=== PATIENT | female | born 1985 | race Caucasian/White ===

== ENCOUNTER 2016-11-11 23:59 | Emergency (ER) | payer OTHER ==
[2016-11-12 00:30] VITALS: TEMP 98.8; BMI 56.3
[2016-11-12] MEDS ORDERED: MORPHINE 4 MG/ML INJECTION IV ONE (00:50)
[2016-11-12] MEDS ORDERED: NS 1,000 ML IV ONE (00:50)
[2016-11-12] MEDS ORDERED: ONDANSETRON HCL 4 MG/2 ML VIAL IV ONE (00:50)
--- NOTE | 2016-11-12 00:54 | EDPRACDOC ---
- General Information Chief Complaint: Dyspnea/Resp distress Stated Complaint: SHORTNESS OF BREATH Time Seen by Provider: 11/12/16 00:35 Information Source: Patient Mode Of Arrival: Car Home Medications: Home Medications Ibuprofen Tablet [Motrin] 800 mg PO QID PRN 11/12/16 Sitagliptin Phosphate [Januvia] 100 mg PO DAILY 11/12/16 Allergies/Adverse Reactions: Allergies Allergy/AdvReac Type Severity Reaction Status Date / Time cefaclor [From Ceclor] Allergy Intermediate Rash-Genera Verified 11/12/16 00:32 lized codeine Allergy Intermediate Nausea/Vomi Verified 11/12/16 00:32 ting - History of Present Illness Onset: TONIGHT HPI: PT STATES SHE BEGAN HAVING UPPER THIGH PAIN EARLIER AND BECAME SHOB. PT DENIES FEVER, CHILLS, NAUSEA OR VOMITING. STATES SHE IS NOT A SMOKER AND DOES NOT TAKE CONTROL, HOWEVER SHE STATES SHE IS NOT VERY AMBULATORY Shortness of Breath: None Relevant History: Reports: None Cough: Reports: Non-productive Rhinorrhea: Reports: Clear Ear Symptoms: Reports: None SOB Worsens with: Reports: Exertion, Anxiety, Lying Flat, Position SOB Improves with: Reports: Sitting up, Rest, Position Recently treated infections:: Denies: Otitis media, Pneumonia, URI ED Past Medical History - History Reviewed Yes Nurses notes reviewed and agree except as marked - Patient Medical History Psychological History: Reports: Depression, Anxiety Systemic History: Reports: Diabetes. Denies: Cancer, Anemia, Lupus Additional Past Medical History: PCOS Surgical History: Reports: Other (BTL) - Family Medical History Reports: Hypertension, Diabetes, Cancer, Stroke, Cardiac Disorders - Social Medical History Smoking Status: Never smoker EDM Review of Systems - Review of Systems ROS Negative Except as Marked: Yes All systems reviewed and were negative except as marked - Physical Exam Constitutional: Alert Oriented to: Time, Person, Place Last recorded Vital Signs: Last Vital Signs Temp 98.8 F 11/12/16 00:23 Pulse 104 11/12/16 00:23 Resp 20 11/12/16 00:23 BP 150/67 11/12/16 00:23 Pulse Ox 98 11/12/16 00:23 Oxygen Pulse Oxygen Saturation 98 O2 Device Room Air Oxygen Flow Rate Fraction of Inspired Oxygen ( FIO2) - HEENT Head: Normal ( normocephalic) Eye Exam: Normal (PERRL, EOMI, Sclera white) Oropharynx: Normal (Pharynx:Moist without exudate,Gums-no swelling) Nose: No Symptoms Reported (septum midline) Neck: Normal (FROM, trachea at midline) - Respiratory/Cardiovascular Respiratory: Normal - CTA (BBS clear to auscultation without adventitious sounds ) Cardiovascular: Tachycardia - GI Auscultation: Normal (NABS) Palpation: Normal (Soft,No rebound or guarding, non distended) Tenderness: Non tender Dalton's Sign: Negative Rectal Exam: Deferred - Musculoskeletal Back: Normal (Non-Tender) Extremities: Normal (Normal tone, Pulses 2+ No cyanosis or edema, FROM) - Integumentary Skin: Normal, Warm, Dry Lymphatics: Normal (no adenopathy) - Neurologic Memory Impaired: Normal Motor Function: Normal (Normal tone, Pulses 2+ No cyanosis or edema, FROM) Cranial Nerve: Normal (CN II-X11 intact sensation, strength 5/5) Cerebellar: Normal Mood Description: Normal Perception: Normal ED SOB MDM - Differential Diagnosis Differential Diagnosis: Other - Results Result Diagrams: 11/12/16 01:00 11/12/16 01:00 - EKG EKG #1 EKG Time: 01:12 -: Yes EKG interpreted by me Rate: bpm: 91 [place]: Normal Rhythm: NSR Block: None Hypertrophy: None ST: Normal Decision Time to Discharge: 02:45 - Departure Disposition: Home Condition: Stable Final Diagnosis: Dyspnea Qualifiers: Dyspnea type: unspecified Qualified Code(s): R06.00 - Dyspnea, unspecified Instructions: Dyspnea (ED) Education/Counseling Given To: Patient Education/Counseling Given Regarding: Diagnosis, Treatment, Prognosis, Follow Up Referrals: Leidy Cantrell MD [Primary Care Provider] - One Week Additional Instructions: PLEASE MAKE A FOLLOW UP APPOINTMENT WITH PCP FOR TOMORROW. RETURN TO THE ED FOR WORSENING SYMPTOMS OR CONCERNS
[2016-11-12] MEDS ORDERED: Pharmacy Review for Metformin - IV Contrast Given SCH (01:00)
[2016-11-12 01:12] LABS: MPV 7.3 fL (7.4-10.4)
[2016-11-12 01:20] LABS: BLOOD UREA NITROGEN 17 MG/DL (7-17); CALCIUM 9.1 MG/DL (8.4-10.2); CALCULATED OSMOLALITY 273 MOs/Kg (270-290); CHLORIDE 101 mEq/L (98-107); CPK TOTAL WITH POSSIBLE MB 23 IU/L (30-134); GLUCOSE 153 MG/DL (70-99); SODIUM LEVEL 139 mEq/L (137-146); TOTAL PROTEIN 7.4 G/DL (6.3-8.2)
[2016-11-12 01:22] LABS: PARTIAL THROMB. TIME 26.3 SEC (22-35)
[2016-11-12 01:33] LABS: SEG NEUTROPHIL 74 % (45-76)
--- NOTE | 2016-11-12 02:40 | DIRPT ---
CLINICAL DATA: Acute onset of mid chest pain, shortness of breath and back pain. Initial encounter. EXAM: CT ANGIOGRAPHY CHEST WITH CONTRAST TECHNIQUE: Multidetector CT imaging of the chest was performed using the standard protocol during bolus administration of intravenous contrast. Multiplanar CT image reconstructions and MIPs were obtained to evaluate the vascular anatomy. The study was repeated due to limitations in the timing of the contrast bolus. CONTRAST: 140 mL of Isovue 370 IV contrast COMPARISON: Chest radiograph performed 11/24/2015 FINDINGS: There is no evidence of central pulmonary embolus. Evaluation for pulmonary embolus is suboptimal due to limitations in the timing of the contrast bolus. The lungs are essentially clear bilaterally. There is no evidence of significant focal consolidation, pleural effusion or pneumothorax. No masses are identified; no abnormal focal contrast enhancement is seen. The mediastinum is unremarkable in appearance. No mediastinal lymphadenopathy is seen. No pericardial effusion is identified. The great vessels are grossly unremarkable in appearance. No axillary lymphadenopathy is seen. The visualized portions of the thyroid gland are unremarkable in appearance. The visualized portions of the liver and spleen are unremarkable. No acute osseous abnormalities are seen. Review of the MIP images confirms the above findings. IMPRESSION: 1. No evidence of central pulmonary embolus. 2. Lungs clear bilaterally. Electronically Signed By: Alexander Denny M.D. On: 11/12/2016 02:37
[2016-11-12 02:57] VITALS: BP 149/70; PULSE 92
== END 2016-11-12 02:58 | disposition home or self-care (01) ==
LOC: ED 23:59
DX: R06.00 Dyspnea, unspecified (principal); E11.9 Type 2 diabetes mellitus without complications; F32.9 Major depressive disorder, single episode, unspecified; F41.9 Anxiety disorder, unspecified; Z79.899 Other long term (current) drug therapy
CPT/HCPCS: 36415; 71275; 80053; 82550; 83880; 84484; 85007; 85027; 85610; 85730; 93005; 96360; 96361; 99283; A9698; J2270; J2405